=== PATIENT | female | born 1970 | race Caucasian/White ===

== ENCOUNTER 2017-08-01 06:10 | Day surgery (SDC) | payer OTHER ==
[2017-07-24 15:07] VITALS: BMI 22.1
[2017-08-01] MEDS ORDERED: PROPOFOL 20 ML ONE (07:25)
[2017-08-01] MEDS ORDERED: SUCCINYLCHOLINE CHLORIDE 200 MG/10 ML VIAL ONE (07:25)
[2017-08-01] MEDS ORDERED: LIDOCAINE HCL/PF 2% SDV 5ML VIAL ONE (07:25)
[2017-08-01] MEDS ORDERED: MIDAZOLAM HCL 2 MG/2 ML SINGLE DOSE VIAL ONE (07:26)
[2017-08-01] MEDS ORDERED: LIDOCAINE HCL 2% (20ML MULTI-DOSE VIAL) NR ONE (07:30)
[2017-08-01] MEDS ORDERED: ONDANSETRON 4 MG/2 ML VIAL ONE (09:13)
[2017-08-01] MEDS ORDERED: ONDANSETRON 4 MG/2 ML VIAL IVPUSH ONE (09:14)
[2017-08-01] MEDS ORDERED: ONDANSETRON 4 MG/2 ML VIAL IVPUSH PRN (09:24)
[2017-08-01] MEDS ORDERED: oxyCODONE HCL 5 MG TABLET PO PRN ×2 (09:24)
[2017-08-01] MEDS ORDERED: LACTATED RINGERS SOLUTION 1,000 ML IV SCH (09:30)
[2017-08-01 09:51] VITALS: TEMP 98.6
[2017-08-01 10:38] VITALS: BP 110/74; PULSE 66
--- NOTE | 2017-08-02 09:11 | OP ---
DATE OF ADMISSION: 08/01/2017 PREOPERATIVE DIAGNOSES: 1. Left triangular fibrocartilage complex tear. 2. Left wrist dorsal ganglion cyst. POSTOPERATIVE DIAGNOSES: 1. Left triangular fibrocartilage complex tear. 2. Left wrist dorsal ganglion cyst. OPERATIVE PROCEDURES: 1. Left wrist operative arthroscopy with triangular fibrocartilage complex debridement 2. Left wrist ganglion mass/cyst excision. SURGEON: Tomasz Workman MD EARLY CHILDHOOD EDUCATION INSTRUCTOR: JOSELUIS Garcia ANESTHESIA: General. COMPLICATIONS: None. ESTIMATED BLOOD LOSS: Minimal. INDICATION FOR PROCEDURE: The patient is a 47-year-old female with the above finding, indicated for operative treatment. Risks, benefits, alternatives were discussed with the patient at length. Proper informed consent was obtained. DESCRIPTION OF PROCEDURE: After proper identification of the patient, correct operative site, patient brought to the operating room, placed supine on the table with all prominences well padded. General anesthesia was provided by the anesthesiologist adequate for procedure. Left upper extremity was prepped and draped in the usual sterile fashion. A well-padded tourniquet was placed over sterile prep. Esmarch bandage used to exsanguinate the left upper extremity. Tourniquet was inflated to 250 mmHg. Wrist arthroscopy traction tower was used with 10 pounds of inline traction, all points of contact well padded. Portals, 3/4 and 4/5, were used throughout the surgery. Both portals were made with skin incision only and blunt dissection down to the joint capsule. A 2.7-mm gravity inflow arthroscope was used. Radiocarpal was first observed and found to have normal radioscaphoid articulation as well as scapholunate and lunotriquetral ligaments. Volar radiocarpal ligaments were intact. There was significant dorsal synovitis over the lunocapitate area as well as the stalk of a ganglion cyst present. The TFCC found to have degenerative tearing on the ulnar dorsal aspect, and this was debrided with mechanical shaver down to a stable healing edge. Trampoline effect was intact, and there was no evidence of instability. The synovitis in the dorsal aspect of the wrist as well as the stalk and ganglion cyst were then excised. Wounds were irrigated with saline and repaired with 5-0 nylon suture. Sterile dressings were applied. Patient was reversed from anesthesia and brought to the recovery room in stable condition. She tolerated the procedure well. Dante Bonilla, the assistant womens volleyball coach, was integral throughout this procedure. Procedure could not have been performed without a skilled operative assistant womens volleyball coach. TOMASZ WORKMAN M.D. FELICITAS/[id number]
== END 2017-08-01 10:40 | disposition home or self-care (01) ==
LOC: FASU 06:10
PROVIDERS: ATTEND Orthopaedic Surgery Hand Surgery
PROC: 0RBP4ZZ Excision of Left Wrist Joint, Percutaneous Endoscopic Approach (ICD-10-PCS; principal; 2017-08-01 08:12)
PROC: 0XBG0ZZ Excision of Right Wrist Region, Open Approach (ICD-10-PCS; 2017-08-01 08:12)
DX: S63.592A Other specified sprain of left wrist, initial encounter (principal); M67.432 Ganglion, left wrist; X58.XXXA Exposure to other specified factors, initial encounter; Y93.9 Activity, unspecified; Y92.9 Unspecified place or not applicable
CPT/HCPCS: 84703; 94760